=== PATIENT | female | born 1975 | race Caucasian/White ===

== ENCOUNTER 2019-08-18 06:21 | Day surgery (SDC) | payer BC ==
[~2019-08-18] VITALS: Ht 162.6 cm; Wt 78.2 kg
[2019-08-18] MEDS ORDERED: SODIUM CHLORIDE 0.9% 1,000 ML IV SCH (06:35)
[2019-08-18 06:39] VITALS: BP 119/80
[2019-08-18] MEDS ORDERED: FLEC100T PO (06:39)
[2019-08-18] MEDS ORDERED: METO25TA35 PO (06:39)
[2019-08-18 07:22] LABS: BASOPHILS # (AUTO) 0.09 x10^3/uL (0-0.1); BASOPHILS % (AUTO) 1 % (0-1); EOSINOPHILS # (AUTO) 0.12 x10^3/uL (0-0.4); EOSINOPHILS % (AUTO) 1 % (1-7); LYMPHOCYTES # (AUTO) 3.35 x10^3/uL (1-3.4); LYMPHOCYTES % (AUTO) 36 % (22-44); MD NO; MEAN CORPUSCULAR HEMOGLOBIN 33.1 pg (27.0-34.8); MEAN CORPUSCULAR HGB CONC 34.1 g/dL (32.4-35.8); MEAN CORPUSCULAR VOLUME 97.2 fL (80-100); MONOCYTES # (AUTO) 0.72 x10^3/uL (0.2-0.8); MONOCYTES % (AUTO) 8 % (2-9); NEUTROPHILS # (AUTO) 5.11 x10^3/uL (1.8-6.8); NEUTROPHILS % (AUTO) 54 % (42-75); PLATELET COUNT 231 x10^3/uL (130-400); RED BLOOD COUNT 4.84 x10^6/uL (3.82-5.3); RED CELL DISTRIBUTION WIDTH 14.4 % (9.6-15.2)
[2019-08-18 07:34] LABS: ANION GAP 5 mmol/L (5-15); CALCIUM 9.2 mg/dL (8.5-10.1); CHLORIDE 109 mmol/L (98-107)
[2019-08-18] MEDS ORDERED: LIDOCAINE 1%, 20ML ONE (07:59)
[2019-08-18] MEDS ORDERED: ISOPROTERENOL 0.2MG/ML, 5ML ONE (07:59)
[2019-08-18] MEDS ORDERED: MIDAZOLAM 1 MG/ML, 2ML ONE ×3 (07:59→09:40)
[2019-08-18] MEDS ORDERED: FENTANYL PF 100 MCG/2ML ONE ×2 (07:59→09:40)
[2019-08-18] MEDS ORDERED: ATROPINE SYRINGE 0.1 MG/ML, 10ML ONE (09:04)
[2019-08-18] MEDS ORDERED: METOPROLOL 1 MG/ML, 5ML ONE (12:39)
[2019-08-18] MEDS ORDERED: METO25TA4 PO (12:52)
[2019-08-18] MEDS ORDERED: METOPROLOL 1 MG/ML, 5ML IVPush ONE (13:00)
== END 2019-08-18 15:01 | disposition home or self-care (01) ==
LOC: CACL 06:21
PROVIDERS: ATTEND Internal Medicine Cardiovascular Disease
DX: I47.1 Supraventricular tachycardia (principal); R00.2 Palpitations; E66.3 Overweight; Z68.31 Body mass index [BMI] 31.0-31.9, adult; Z79.899 Other long term (current) drug therapy; Z90.710 Acquired absence of both cervix and uterus
CPT/HCPCS: 36415; 71046; 80048; 85025; 93613; 93621; 93623; 93653; 99156; 99157; C1730; C1894; C2630; J0461; J2250; J3010